=== PATIENT | male | born 1970 | race Caucasian/White ===

== ENCOUNTER 2021-12-06 10:00 | Day surgery (SDC) | payer BC ==
[2021-12-06] VITALS (10 sets, daily range): BP systolic 114–129; BP diastolic 90–101
[~2021-12-06] VITALS: Ht 193 cm; Wt 119.9 kg
[2021-12-06 08:36] LABS: HEMATOCRIT 53 % (40-54); HEMOGLOBIN 17.5 g/dL (13.3-17.7); MEAN CORPUSCULAR HEMOGLOBIN 28 pg (25-34); MEAN CORPUSCULAR HGB CONC 33 g/dL (32-36); MEAN CORPUSCULAR VOLUME 83 fL (80-99); MEAN PLATELET VOLUME 9.1 fL (9.0-12.2); PLATELET COUNT 257 10^3/uL (130-400); WHITE BLOOD COUNT 9.4 10^3/uL (4.3-11.0)
[2021-12-06 08:56] LABS: ALBUMIN 4.5 GM/DL (3.2-4.5); BILIRUBIN,TOTAL 1.8 MG/DL (0.1-1.0); CALCIUM 9.1 MG/DL (8.5-10.1); CREATININE SERUM 1.22 MG/DL (0.60-1.30); POTASSIUM 4.1 MMOL/L (3.6-5.0); TOTAL PROTEIN 8.1 GM/DL (6.4-8.2)
[~2021-12-06 10:00] MED LIST: APIX5TAB PO; ASPI-892; CHOL10007 PO; FAMO20TA3 PO; HEParin (CATH LAB) 2,000 ML IV ONE; LIDOCAINE 1% INJ 20 ML VIAL ONE; LOSA50TA63 PO; METO50TA7 PO; MIDAZOLAM 5 MG/5 ML (VERSED) VIAL ONE; MULT-1136 PO; NAPR220T66 PO; NS IV 1000 ML 1,000 ML IV SCH; NS IV 1000 ML 1,000 ML ONE; SPIR25TA PO; VITA-189 PO; fentaNYL INJ 100 MCG/2 ML AMP ONE
[2021-12-06] MEDS ORDERED: DIGO250T3 PO (10:41)
--- NOTE | 2021-12-06 10:42 | Discharge Inst-Post CATH ---
Discharge Inst-CATH/EP Post Cardiac Cath/EP D/C Inst Follow Up/Plan F/u with Dr Marmolejo in 3-4 weeks ACTIVITY * Go Home directly and rest. * Limit activity of the leg (or wrist if it was used) for 7 days including aerobics, swimming, jogging, bicycling, etc. * Restrict stair-climbing for 7 days if possible, if not, climb up with your non-cath leg, then bring together on the same step. * Avoid lifting, pushing, pulling or excessive movement of the affected extremity for 7 days. * Customary sexual activity may be resumed after 2 days-use caution not to use a position that strains or causes pain to the affected extremity. * No driving for 24 hours. * NO SMOKING. * Avoid straining for bowel movements for 7 days. * Gentle walking on level ground is allowed. * Returning to work will depend on the type of procedure and the results. Your doctor will discuss this with you. CALL YOUR DOCTOR FOR ANY OF THE FOLLOWING: *If bleeding from the puncture site occurs- Apply gentle pressure to site with clean cloth and call your doctor or EMS. * If a knot or lump forms under the skin, increases in size, or causes pain. * If bruising appears to be worsening or moving further down your leg instead of disappearing. * Temperature above 101 F. CARE OF YOUR GROIN INCISION; * Bruising or purple discoloration of the skin near the puncture site is common. * You may shower only, no bathtub bathing for 5 days. Be careful to avoid slipping as your leg may feel stiff. * If a closure device was used on your femoral artery, please see the attached guide regarding care of the device and your leg. * Leave dressing on FOR 24 hours. CARE OF YOUR WRIST INCISION; * Bruising or purple discoloration of the skin near the puncture site is common. * You may shower. * DO NOT submerge wrist. * Leave dressing on FOR 24 hours. TREMAYNE MARMOLEJO MD [facility] CCDS Dec 06, 2021 10:42
--- NOTE | 2021-12-06 10:42 | Discharge Inst-Cardiology ---
Discharge Inst-Cardiac Discharge Medications New Medications: Digoxin (Digoxin) 250 Mcg Tablet 250 MCG PO DAILY for 30 Days, #30 TAB 3 Refills Continued Medications: Apixaban (Eliquis) 5 Mg Tablet 5 MG PO BIDPC, TAB Cholecalciferol (Vitamin D3) (Vitamin D3) 25 Mcg Capsule 25 MCG PO DAILY, CAP Famotidine (Acid Secretarial Teacher (FAMOTIDINE)) 20 Mg Tablet 20 MG PO DAILY, TAB Losartan Potassium (Losartan Potassium) 50 Mg Tablet 50 MG PO BIDPC, TAB Metoprolol Succinate (Metoprolol Succinate) 50 Mg Tab.er.24h 50 MG PO DAILY, TAB Multivitamin (Multivitamin) 1 Each Tablet 0.5 EACH PO DAILY, TAB Spironolactone (Aldactone) 25 Mg Tablet 25 MG PO Q48H, TAB Vitamin B Complex (B Complex) 1 Each Tablet 0.5 EACH PO DAILY, TAB Discontinued Medications: Naproxen Sodium (Aleve) 220 Mg Tablet 220-440 MG PO Q12H PRN for PAIN-MILD (1-4), TAB TREMAYNE PARKER MD FACP FAC CCDS Dec 06, 2021 10:42
[2021-12-06] MEDS ORDERED: NS IV 1000 ML 1,000 ML IV SCH (10:45)
[2021-12-06] MEDS ORDERED: PATIENT MAY USE OWN MEDS, ALL PO SCH (10:45)
--- NOTE | 2021-12-06 11:42 | Cardiac Procedure Note-CS/ASA ---
Pre-Procedure Note Pre-Op Procedure Note H&P Reviewed The H&P was reviewed, patient examined and no changes noted. Date H&P Reviewed: Dec 06, 2021 Time H&P Reviewed: 09:30 Conscious Sedation Pre-Proced Time 09:30 ASA Score 3 For ASA 3 and 4: Consider anesthesia and medical clearance. Also, for patients with a history of failed moderate sedation consider anesthesia. Airway Lungs Heart ASA score ASA 1: a normal healthy patient ASA 2: a patient with a mild systemic disease (mid diabetes, controlled hypertension, obesity ASA 3: a patient with a severe systemic disease that limits activity (angina, COPD, prior Myocardial infarction) ASA 4: a patient with an incapacitating disease that is a constant threat to life (CHF, renal failure) ASA 5: a moribund patient not expected to survive 24 hrs. (ruptured aneurysm) ASA 6: a declared brain- patient whose organs are being harvested. For emergent operations, add the letter E after the classification Mallampati Classification Grade 2 Sedation Plan Analgesia, Amnesia, Plan communicated to team members, Discussed options with patient/fam, Discussed risks with patient/fam The patient is an appropriate candidate to undergo the planned procedure, sedation, and anesthesia. The patient immediately re-assessed prior to indication. TREMAYNE PARKER MD FACP FAC CCDS Dec 06, 2021 11:42
--- NOTE | 2021-12-06 13:33 | CARDIAC CATHETERIZATION ---
DATE OF SERVICE: 12/06/2021 CARDIAC CATHETERIZATION REPORT INDICATION FOR PROCEDURE: The patient is a 51-year-old gentleman, who has been diagnosed with atrial fibrillation and dilated cardiomyopathy. Cardiac catheterization was carried out today after having obtained an informed consent. DESCRIPTION OF PROCEDURE: He was brought to the cardiac catheterization laboratory in a fasting state. Right groin was prepared and draped in the usual sterile fashion. Lidocaine 1% was used as local anesthesia. Modified Seldinger technique was used to advance a 5-Marshallese sheath in the right femoral artery, 5-Marshallese JL4 catheter was used for left coronary angiography, 5-Marshallese JR4 catheter was used for right coronary angiography, and 5-Marshallese pigtail catheter was used for left heart catheterization and left ventricular angiography. The pigtail catheter was then pulled back. Angiography of the right femoral artery was carried out through the sheath. Mynx was used to achieve hemostasis. He tolerated the procedure well. HEMODYNAMICS: Left ventricular end-diastolic pressure following coronary angiography was 15 mmHg. There was no significant pressure gradient on pullback across the aortic valve. LEFT VENTRICULAR ANGIOGRAPHY: Left ventricular angiography was carried out in the right anterior oblique projection. There was moderate global hypokinesis. Left ventricular ejection fraction is estimated to be 35% to 40%. CORONARY ANGIOGRAPHY: Left main coronary artery, left anterior descending, left circumflex, and right coronary artery do not exhibit any significant obstructive disease, only minor coronary plaques were seen. Right coronary artery is dominant. CONCLUSIONS: 1. Minimal coronary artery disease. 2. Impairment global left ventricular systolic function with a global hypokinesis and left ventricular ejection fraction of 35% to 40%. 3. Left ventricular end-diastolic pressure of 45 mmHg. DISCUSSION AND RECOMMENDATIONS: His heart failure regimen including beta clayton, angiotensin receptor clayton, and spironolactone, is being continued. We advised him to refrain from using nonsteroidal anti-inflammatory medications. Stroke prophylaxis is with apixaban, that is being continued. He was exhibiting a somewhat rapid ventricular response during this procedure. We are adding low dose digoxin to the regimen and outpatient followup is advised. Job ID: [id number] DocumentID: [id number] Dictated Date: 12/06/2021 10:40:49 Job Estimator Date: 12/06/2021 13:32:38 Dictated By: TREMAYNE PARKER MD, MA, FACP, FACC, MTDD
== END 2021-12-06 14:20 | disposition home or self-care (01) ==
LOC: CATH 10:00 → SDC 10:53 → CATH 14:20
PROVIDERS: ATTEND Internal Medicine Cardiovascular Disease
DX: I48.91 Unspecified atrial fibrillation (principal); I42.0 Dilated cardiomyopathy; I48.20 Chronic atrial fibrillation, unspecified; I10 Essential (primary) hypertension; F41.9 Anxiety disorder, unspecified; Z79.899 Other long term (current) drug therapy; Z79.01 Long term (current) use of anticoagulants
CPT/HCPCS: 80053; 85027; 85610; 85730; 87081; 93458; C1760; C1894; 36415

== ENCOUNTER → 2021-12-20 | Outpatient (CLI) | payer BC ==
[~2021-12-20] MED LIST changes: +DIGO250T3 PO; -HEParin (CATH LAB) 2,000 ML IV ONE; -LIDOCAINE 1% INJ 20 ML VIAL ONE; -MIDAZOLAM 5 MG/5 ML (VERSED) VIAL ONE; -NS IV 1000 ML 1,000 ML IV SCH; -NS IV 1000 ML 1,000 ML ONE; -fentaNYL INJ 100 MCG/2 ML AMP ONE
== END ==
LOC: LAB 14:24
PROVIDERS: ATTEND Internal Medicine Cardiovascular Disease
DX: I42.0 Dilated cardiomyopathy (principal)
CPT/HCPCS: 36415; 80162

== ENCOUNTER 2022-01-03 10:11 | Day surgery (SDC) | payer BC ==
[~2022-01-03] VITALS: Ht 193 cm; Wt 117.4 kg
[2022-01-03] VITALS (7 sets, daily range): BP systolic 110–137; BP diastolic 84–101
[2022-01-03] MEDS ORDERED: NS IV 1000 ML 1,000 ML ONE (10:28)
[2022-01-03] MEDS ORDERED: NS IV 1000 ML 1,000 ML IV SCH (10:30)
[2022-01-03] MEDS ORDERED: MIDAZOLAM 2 MG/2 ML (VERSED) VIAL ONE (10:59)
[2022-01-03] MEDS ORDERED: proPOfol 200 MG/20 ML (DIPRIVAN) VIAL IV ONE (11:00)
[2022-01-03 11:02] LABS: HEMATOCRIT 47 % (40-54); HEMOGLOBIN 15.8 g/dL (13.3-17.7); MEAN CORPUSCULAR HEMOGLOBIN 28 pg (25-34); MEAN CORPUSCULAR HGB CONC 34 g/dL (32-36); MEAN CORPUSCULAR VOLUME 82 fL (80-99); MEAN PLATELET VOLUME 9.3 fL (9.0-12.2); PLATELET COUNT 223 10^3/uL (130-400); WHITE BLOOD COUNT 5.3 10^3/uL (4.3-11.0)
[2022-01-03] MEDS ORDERED: OMG1KC PO (11:03)
[2022-01-03 11:15] LABS: ALBUMIN 4.1 GM/DL (3.2-4.5); CREATININE SERUM 0.94 MG/DL (0.60-1.30); POTASSIUM 4.4 MMOL/L (3.6-5.0); TOTAL PROTEIN 6.9 GM/DL (6.4-8.2)
[2022-01-03 11:35] LABS: PROTHROMBIN TIME PATIENT 13.5 SEC (12.2-14.7)
--- NOTE | 2022-01-03 11:35 | Anesthesia-General Post-Op ---
MAC Patient Condition Mental Status/LOC: Same as Preop Cardiovascular: Satisfactory Nausea/Vomiting: Absent Respiratory: Satisfactory Pain: Controlled Complications: Absent Post Op Complications Complications None Follow Up Care/Instructions Patient Instructions None needed. Anesthesiology Discharge Order Discharge Order Patient is doing well, no complaints, stable vital signs, no apparent adverse anesthesia problems. No complications reported per nursing. MAIKOL JACKSON CRNA Jan 03, 2022 11:35
--- NOTE | 2022-01-03 19:32 | OPERATIVE REPORT ---
DATE OF SERVICE: 01/03/2022 PREOPERATIVE DIAGNOSIS: Atrial fibrillation. POSTOPERATIVE DIAGNOSIS: Sinus rhythm. PROCEDURE PERFORMED: External electrical cardioversion. INDICATIONS: The patient is a 51-year-old gentleman who was first diagnosed with atrial fibrillation on 11/30/2021 at [place], [place]. He was placed on apixaban 5 mg twice a day that he has continued without any interruption since then. External electrical cardioversion was carried out today after having obtained an informed consent. DESCRIPTION OF PROCEDURE: [facility] The nurse mortgage loan counselor provided short acting anesthesia. External electrical cardioversion was performed through external pads using a biphasic, synchronized, 120 joules shock which did not result in conversion. Subsequently, a 150 joules synchronized shock was administered, which converted atrial fibrillation to sinus rhythm. He tolerated the procedure well. Job ID: [id number] DocumentID: [id number] Dictated Date: 01/03/2022 11:27:02 Rehabilitation Physician Date: 01/03/2022 19:31:27 Dictated By: TREMAYNE PARKER MD, MA, FACP, FACC,
== END 2022-01-03 12:20 | disposition home or self-care (01) ==
LOC: SDC 10:11 → CATH 12:20
PROVIDERS: ATTEND Internal Medicine Cardiovascular Disease
DX: I48.19 Other persistent atrial fibrillation (principal); I49.1 Atrial premature depolarization; I25.2 Old myocardial infarction; I42.0 Dilated cardiomyopathy; I10 Essential (primary) hypertension; G47.33 Obstructive sleep apnea (adult) (pediatric); F41.9 Anxiety disorder, unspecified; Z82.49 Family history of ischemic heart disease and other diseases of the circulatory system; Z79.01 Long term (current) use of anticoagulants; Z79.899 Other long term (current) drug therapy
CPT/HCPCS: 36415; 80053; 80061; 85027; 85610; 85730; 87081; 92960; 93005

== ENCOUNTER 2022-01-25 10:03 | Outpatient (CLI) | payer BC ==
[~2022-01-25 10:03] MED LIST changes: +OMG1KC PO
== END 2022-01-25 10:30 ==
LOC: SLEEP 10:03
PROVIDERS: ATTEND Nurse Practitioner
DX: G47.33 Obstructive sleep apnea (adult) (pediatric) (principal); G47.36 Sleep related hypoventilation in conditions classified elsewhere
CPT/HCPCS: G0399

== ENCOUNTER → 2022-06-20 | Outpatient (CLI) | payer OTHER, BC ==
[2022-06-20 18:03] LABS: ALBUMIN 3.9 GM/DL (3.2-4.5)
[2022-06-20 18:04] LABS: POTASSIUM 3.9 MMOL/L (3.6-5.0)
[2022-06-20 18:05] LABS: CALCIUM 8.9 MG/DL (8.5-10.1)
[2022-06-20 18:06] LABS: TOTAL PROTEIN 6.6 GM/DL (6.4-8.2)
[2022-06-20 18:18] LABS: BILIRUBIN,TOTAL 0.9 MG/DL (0.1-1.0); CREATININE SERUM 1.04 MG/DL (0.60-1.30); MAGNESIUM 1.8 MG/DL (1.6-2.4)
== END ==
LOC: GIR 17:58
PROVIDERS: ATTEND Nurse Practitioner Family
DX: Z01.89 Encounter for other specified special examinations (principal)
CPT/HCPCS: 80053; 83735